=== PATIENT | female | born 1955 | race Caucasian/White ===

== ENCOUNTER 2022-05-09 13:30 | Outpatient (CLI) | payer MEDICARE, SELFPAY ==
--- NOTE | 2022-05-09 13:30 | CRLHL7_ITS ---
For Patients: As a result of the Century Cures Act, medical imaging exams and procedure reports are released immediately into your electronic medical record. You may view this report before your referring provider. If you have questions, please contact your health care provider. DXA BONE MINERAL DENSITY STUDY, 05/09/2022 Current height (in): 60.5. Weight (lb): 150. Menopause age: 54. Ethnicity: White. 1. Have you had a previous hip or vertebral fracture? No. 2. Have you had any fractures during your adult life which did not result from significant trauma (e.g., auto accident)? No. 3. Did either of your parents have a hip fracture? No. 4. Do you smoke? No. 5. Have you ever taken Glucocorticoids? No. 6. Do you have rheumatoid arthritis? No. 7. Do you have secondary osteoporosis? No. 8. Do you drink 3 or more alcoholic drinks per day? No. 9. Are you being treated for osteoporosis? No. 10. Have you ever taken any of the following medications: Actonel, Evista, Fosamax, Miacalcin, Reclast, Boniva, Forteo, HRT (i.e. estrogen/hormone therapy), Protelos, Prolia, Vitamin D, Calcium, other ??? please specify. ANSWER: Yes, vitamin D and calcium. 11. Do you have any of the following medical conditions: Anorexia or bulimia, asthma or emphysema, end stage renal disease, hyperparathyroidism, any seizure disorders, cancer, inflammatory bowel diseases, hysterectomy, other ??? please specify. ANSWER: No. 12. What was your maximum height (inches)? 62 13. Do you perform weight bearing exercise regularly? Yes. 14. Do you regularly consume dairy products? Yes. 15. Do you drink caffeinated beverages? Yes. If female: 16. At what age did your period start? 14. 17. Are you premenopausal? No. 18. How many full term pregnancies have you had? 2. 19. Have you ever missed your period for more than 6 months in a row (not including or menopause)? No. TECHNIQUE: Bone mineral density study was performed using the [employer]. FINDINGS: The results of the study expressed as bone mineral density (BMD) are as follows: Lumbar spine L2 to L3: BMD: 0.900 g/cm2. T-score: -1.4. Z-score: 0.4 Neck Left: BMD: 0.741 g/cm2. T-score: -1.0. Z-score: 0.6 Right: BMD: 0.779 g/cm2. T-score: -0.6. Z-score: 0.9 Total Left: BMD: 0.928 g/cm2. T-score: -0.1. Z-score: 1.1 Right: BMD: 0.935 g/cm2. T-score: -0.1. Z-score: 1.2 Radius Left 33%: BMD: 0.620 g/cm2. T-score: -1.2. Z-score: 0.5 IMPRESSION: Osteopenia. COMPARISON: Compared with scan of 06/28/2020, the bone mineral density has decreased by 4.1 percent at the spine, increased by 1.6 percent at the hip and increased by 0.5 percent at the left forearm. Compared with scan of 05/11/2018, the bone mineral density has decreased by 4.4 percent at the spine and decreased by 0.8 percent at the hip. FRAX 10-year Fracture Risk Major Osteoporotic Fracture: 8.0 percent Hip Fracture: 0.6 percent Reported Risk Factors: [place] () Neck BMD = 0.741, BMI = 28.8 Sondra Moe M.D. Diagnostic Radiologist [email or web address] DAVID/[email or web address] sheffield/Dictated by: Sondra Moe MD @ 05/10/2022 10:52:00 AM (Electronically Signed)
== END 2022-05-09 13:31 | disposition home or self-care (01) ==
LOC: RAD 16:03
PROVIDERS: PCP Family Medicine; Visit Provider Family Medicine
DX: M85.80 Other specified disorders of bone density and structure, unspecified site (principal); M85.89 Other specified disorders of bone density and structure, multiple sites
CPT/HCPCS: 77080

== ENCOUNTER 2022-06-03 10:01 | Outpatient (CLI) | payer MEDICARE, SELFPAY ==
--- NOTE | 2022-06-03 10:15 | CRLHL7_ITS ---
For Patients: As a result of the Century Cures Act, medical imaging exams and procedure reports are released immediately into your electronic medical record. You may view this report before your referring provider. If you have questions, please contact your health care provider. BILATERAL MAMMOGRAM WITH COMPUTER-AIDED DETECTION AND TOMOSYNTHESIS TECHNIQUE: CC and MLO views were obtained. These mammographic images have been obtained using full-field digital technique. These mammographic images were interpreted with the benefit of computer-aided detection. Breast Tomosynthesis was used in this interpretation. COMPARISON FILM: 05/31/21, 05/29/20, 05/21/19. FINDINGS: There are scattered areas of fibroglandular density IMPRESSION: There is no radiographic evidence for malignancy. ASSESSMENT: BI-RADS Category 1: Negative RECOMMENDATION: Routine screening mammogram in 1 year. A lay language report of this examination will be provided to the patient. Vick Burger M.D. Diagnostic/Musculoskeletal Radiologist [email or web address] OTONIEL/[email or web address] / be/Dictated by: Vick Burger MD @ 06/04/2022 8:46:00 AM (Electronically Signed)
== END 2022-06-03 10:02 | disposition home or self-care (01) ==
LOC: MAMMO 10:03
PROVIDERS: PCP Family Medicine; Visit Provider Obstetrics & Gynecology
DX: Z12.31 Encounter for screening mammogram for malignant neoplasm of breast (principal)
CPT/HCPCS: 77063; 77067

== ENCOUNTER 2022-10-23 06:16 | Day surgery (SDC) | payer MEDICARE, SELFPAY ==
[2022-10-23] VITALS (13 sets, daily range): BP systolic 101–129; BP diastolic 63–78; PULSE 64–69; RESP 14–18; TEMP 36.4–36.6; O2SAT 95–99
[2022-10-23] MEDS: BUPIVACAINE 0.5% 30 ML INJECTION (06:34)
[2022-10-23] MEDS: ETHYL CHLORIDE 1 APPLICATION 1 APPLIC TOPICAL (07:10)
--- NOTE | 2022-10-23 07:59 | PM.ORPRC ---
Procedure Note Date of procedure: 10/23/22 Procedure: PREOPERATIVE DIAGNOSIS: 1. Right index finger dorsal DIP joint mucous cyst with associated osteophyte POSTOPERATIVE DIAGNOSIS: 1. Right index finger dorsal DIP joint mucous cyst with associated osteophyte PROCEDURE: 1. Right index finger dorsal DIP joint mucous cyst open excision 2. Right index finger dorsal D IP joint osteophyte open excision SURGEON: Addy Lyons MD. FINANCIAL ECONOMIST: Sanjeev Johnson PA-C - Of note, an processing assistant was critical for this case to aid in patient positioning, tissue retraction, limb manipulation/positioning, and closure. ANESTHESIA: Local anesthetic (50:50 mixture of 1% lidocaine plain and 0.5% marcaine plain)-10 mL total digital block IMPLANTS: None TOURNIQUET: 15 minutes digital tourniquet for COMPLICATIONS: None evident INDICATIONS: The patient is a pleasant 67-year-old female who has experienced right index finger dorsal D IP joint mucous cyst development, osteophyte formation, and pain that has progressively gotten worse. Nonoperative management has been tried but unsuccessful. Given the failure of nonoperative management, and how this affects daily life, surgery was recommended. DESCRIPTION OF PROCEDURE: Following a thorough discussion of risks, benefits, and alternatives consent was obtained and the operative extremity was marked. The patient was brought to the operating room and placed supine on the operating table. No antibiotics were administered as this was planned to be a local case only. Proper time-out was performed identifying proper patient, site, and procedure. The operative extremity was prepped and draped in the appropriate sterile fashion using ChloraPrep. The limb was exsanguinated and the tourniquet inflated. A transverse incision was made overlying the dorsal aspect of the IP joint right index finger and T'd proximally along the radial mid axial line. Sharp incision through skin and blunt dissection through subcutaneous tissue loss to protect the extensor tendon. A window was created along the radial aspect of the extensor tendon with excision of this subcutaneous/fascial tissue. The mucous cyst was immediately encountered and the thick, viscous, gelatinous fluid was evacuated. The cyst itself was excised sharply with a 15 blade and sent for permanent pathology. We then turned our attention to osteophyte excision. A combination of rongeur, curette, and rasp allowed us to debulk the distal phalanx base dorsal osteophyte. This required us to go on both sides the extensor tendon. The tendon was protected throughout the case and confirmed to be intact at the end. Thorough irrigation normal saline was performed. The tourniquet was released, hemostasis achieved, and closure performed with 4-0 nylon in interrupted fashion. Soft dressings were applied, and the patient was awoken/transferred to the recovery room in stable condition. PLAN: 1. Encourage elevation of the operative extremity. 2. Range of motion of the operative extremity/digits as tolerated. 3. Ibuprofen, acetaminophen and/or Percocet as needed for pain. 4. Follow up with PA visit in 12-16 days for wound check and suture removal.
--- NOTE | 2022-10-23 08:15 | SUR.PREOP ---
SAME DAY SURGERY LOCAL INJECTION SITE VERIFICATION WAS PERFORMED BY SURGEON/PA AND PATIENT PRIOR TO LOCAL ANESTHETIC BEING INJECTED TO OPERATIVE SITE.right index finger Dr. Lyons
== END 2022-10-23 08:33 | disposition home or self-care (01) ==
PROVIDERS: PCP Family Medicine; Visit Provider Orthopaedic Surgery Sports Medicine
PROC: (CPT 26160; principal; 2022-10-23 07:30)
DX: M67.441 Ganglion, right hand (principal); M25.741 Osteophyte, right hand
CPT/HCPCS: 26160; 88304; J3490

== ENCOUNTER 2023-02-06 08:58 | Emergency (ER) | payer MEDICARE, SELFPAY ==
[2023-02-06] VITALS (12 sets, daily range): BP systolic 117–146; BP diastolic 67–78; PULSE 59–68; RESP 18; TEMP 36.9; O2SAT 96–100; BMI 26.2
--- NOTE | 2023-02-06 09:23 | ED.NURSE ---
started #20 jelco as a saline lock in the right AC and able to draw the labs from iv site. running a poc trop in ED with pending results.
--- NOTE | 2023-02-06 09:31 | ED_ITS ---
HPI - Chest Pain General Chief Complaint: Chest Pain Stated Complaint: heart issues Time Seen by Provider: 02/06/23 09:08 History of Present Illness HPI narrative: This 67-year-old female comes in reporting some chest discomfort that is rather persistent over the past week. She states that it is in the central part of her anterior chest overlying the sternum. She describes it as a pain or pressure. She does not report any nausea, vomiting, lightheadedness, shortness of breath, or diaphoresis. She has good exercise tolerance and regularly walks without any symptoms. She does not describe any injury event. She states that she has had extra stress over the past year because her son as a non-Hodgkin's lymphoma. He underwent a stem cell transplant 100 days ago and has been doing well. Related Data Home Medications Medication Instructions Recorded Confirmed ascorbic acid (vitamin C) 500 mg 500 mg PO DAILY 06/17/22 02/06/23 tablet aspirin 81 mg tablet,delayed 81 mg PO DAILY 06/17/22 02/06/23 release calcium carbonate 600 mg-vitamin 2 tab PO DAILY 06/17/22 02/06/23 D3 10 mcg (400 unit) tablet lisinopril 10 mg tablet 10 mg PO DAILY 06/17/22 02/06/23 multivitamin with iron (Daily 1 tab PO QDAY 06/17/22 02/06/23 Multiple Vitamins with Iron tablet) naproxen 250 mg tablet 220 mg PO BID 06/17/22 02/06/23 omega-3 acid ethyl esters 1 gram 1 cap PO QDAY 06/17/22 02/06/23 capsule simvastatin 5 mg tablet 5 mg PO .Bedtime 06/17/22 02/06/23 Allergies Allergy/AdvReac Type Severity Reaction Status Date / Time No Known Allergies Allergy Verified 11/14/22 10:22 Review of Systems Status of ROS Reports: 10 or more systems reviewed and unremarkable except as noted in History and below Narrative Constitutional: No fevers, no weight gain or loss. Eyes: No discharge. No vision changes. HENT: No congestion, no sore throat, no ear pain. Cardiovascular: No palpitations. Respiratory: No shortness of breath, no wheezes, no cough. Gastrointestinal: No abdominal pain, no vomiting, no diarrhea. Genitourinary: No dysuria, no hematuria. Musculoskeletal: Normal range of motion. Skin: No rashes, no pruritis. Neurological: No dizziness, weakness, sensory change, speech change. Endo/Heme/Allergies: No bruising or bleeding. No polydipsia. Pysch: no suicidality, no anxiety, no insomnia. All other systems reviewed and are negative. [facility] Medical History (Updated 02/06/23 @ 10:25 by Valentin Morrissey MD) Elevated cholesterol ?E78.00 - Pure hypercholesterolemia, unspecified (ICD-10) History of basal cell carcinoma (BCC) (2016) ?Z85.828 - Personal history of other malignant neoplasm of skin (ICD-10) History of benign breast biopsy (1991) ?Z98.890 - Other specified postprocedural states (ICD-10) History of complications due to general anesthesia (2006) ?Z91.89 - Other specified personal risk factors, not elsewhere classified (ICD-10) Neck problem ?R68.89 - Other general symptoms and signs (ICD-10) NSAID long-term use ?Z79.1 - MCC (current) use of non-steroidal anti-inflammatories (NSAID) (ICD-10) Surgical History (Updated 11/14/22 @ 11:07 by Sanjeev Johnson PA-C) H/O removal of cyst (10/23/22) ?Z98.890 - Other specified postprocedural states (ICD-10) History of section (1989) ?Z98.891 - History of uterine scar from previous surgery (ICD-10) History of colonoscopy (05/06/18) ?Z98.890 - Other specified postprocedural states (ICD-10) History of hysteroscopy (2005) ?Z98.890 - Other specified postprocedural states (ICD-10) History of laparoscopy (1987) ?Z98.890 - Other specified postprocedural states (ICD-10) History of Mohs micrographic surgery for skin cancer (2016) ?Z85.828 - Personal history of other malignant neoplasm of skin (ICD-10) ?Z98.890 - Other specified postprocedural states (ICD-10) History of oral surgery (2008) ?Z98.890 - Other specified postprocedural states (ICD-10) History of tubal ligation (1998) ?Z98.51 - Tubal ligation status (ICD-10) History of varicose vein ligation (2015) ?Z98.890 - Other specified postprocedural states (ICD-10) ?Z86.79 - Personal history of other diseases of the circulatory system (ICD- 10) Family History (Updated 09/06/22 @ 10:30 by Heidi English MD) Family/Other Breast cancer, Onset Age: 50 Maternal Grandmother Stroke Father Coronary artery disease, Onset Age: 60 Diabetes Mother Lupus erythematosus Paternal Grandfather Colon cancer, Onset Age: 90 Aunt Breast cancer, Onset Age: 50 Son Lymphoma Social History (Reviewed 11/07/22 @ 08:35 by Es Jordan ~ [facility], [facility]) Narrative: Exercises 5 to 6 times per week. 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 3-5 Smoking Status: Never smoker Second hand tobacco smoke exposure: No How often do you have a drink containing alcohol: 2-3 times a week How many standard drinks containing alcohol do you have on a typical day: 1 or 2 How often do you have six or more drinks on one occasion: Less than monthly AUDIT-C Alcohol total score: 4 Non-prescribed substance use: denies use service: No Exam Narrative Exam Narrative: Constitutional: Well-developed, well-nourished, no acute distress. HEENT: Normocephalic, atraumatic. Neck: Normal range of motion. Nontender. Supple. Heart: Regular. No murmurs. Normal rate. Intact distal pulses. Lungs: Clear to auscultation. No chest discomfort. No wheezes, rhonchi, or rales. Abdomen: Normal bowel sounds. Nontender. No rebound tenderness. Genitalia: Deferred. Back: No midline tenderness. Normal range of motion. Extremities: Normal range of motion. No injury. Skin: Intact. No rash. Warm. No erythema or pallor. Neurologic: No altered sensation. No weakness. Alert and oriented. Psychiatric: No suicidality. No anxiety or depression. No insomnia. Nursing notes and vitals signs are reviewed. Const Vital Signs, click to edit/add: Vital Signs - 24 hr 02/06/23 09:06 02/06/23 09:12 02/06/23 09:13 Temperature 98.4 F Pulse Rate 67 67 Pulse Rate [Left Pulse Oximeter] 64 Respiratory Rate 18 Blood Pressure 129/75 Blood Pressure [Left Upper Arm] 146/75 H Pulse Oximetry 100 99 99 Oxygen Delivery Method Room Air 02/06/23 09:15 02/06/23 09:30 02/06/23 09:32 Temperature Pulse Rate 68 63 63 Pulse Rate [Left Pulse Oximeter] Respiratory Rate Blood Pressure 126/78 Blood Pressure [Left Upper Arm] Pulse Oximetry 99 97 98 Oxygen Delivery Method 02/06/23 09:45 02/06/23 10:00 02/06/23 10:01 Temperature Pulse Rate 62 60 63 Pulse Rate [Left Pulse Oximeter] Respiratory Rate Blood Pressure 124/75 Blood Pressure [Left Upper Arm] Pulse Oximetry 96 97 98 Oxygen Delivery Method 02/06/23 10:15 Temperature Pulse Rate 59 L Pulse Rate [Left Pulse Oximeter] Respiratory Rate Blood Pressure Blood Pressure [Left Upper Arm] Pulse Oximetry 97 Oxygen Delivery Method Course Vital Signs Vital signs: Initial Vital Signs Temperature 98.4 F 02/06/23 09:06 Temperature Source Temporal Artery Scan 02/06/23 09:06 Pulse Rate 64 02/06/23 09:06 Pulse Rhythm Regular 02/06/23 09:06 Pulse Strength 3+ Normal 02/06/23 09:06 Respiratory Rate 18 02/06/23 09:06 Blood Pressure 146/75 H 02/06/23 09:06 Blood Pressure Mean 98 02/06/23 09:06 Blood Pressure Position Sitting 02/06/23 09:06 Pulse Oximetry 100 02/06/23 09:06 Oxygen Delivery Method Room Air 02/06/23 09:06 Vital Signs Temperature 98.4 F 02/06/23 09:06 Pulse Rate 64 02/06/23 09:06 Respiratory Rate 18 02/06/23 09:06 Blood Pressure 146/75 H 02/06/23 09:06 Pulse Oximetry 100 02/06/23 09:06 Oxygen Delivery Method Room Air 02/06/23 09:06 Temperature 98.4 F 02/06/23 09:06 Pulse Rate 59 L 02/06/23 10:15 Respiratory Rate 18 02/06/23 09:06 Blood Pressure 124/75 02/06/23 10:01 Pulse Oximetry 97 02/06/23 10:15 Oxygen Delivery Method Room Air 02/06/23 09:06 MDM - Chest Pain MDM Narrative Medical decision making narrative: This patient comes in with some mild chest discomfort that she describes as a pain or pressure that is been rather constant over the past week. She does not have any other associated symptoms. She does not have any major cardiac risk factors and has good exercise tolerance. EKG and labs returned with reassuring findings here. Her symptoms are not likely emanating from her heart or lungs or other vital organs. More likely this is chest wall pain. I did describe further studies that can be considered such as a stress test. At the time of discharge the patient appears safe for outpatient management. The treatment plan is reviewed along with written and verbal return precautions. Reasons to return and the importance of close followup were also reviewed. Lab Data Labs: Lab Results 02/06/23 02/06/23 Range/Units 09:15 09:31 WBC 5.82 (4.50-11.00) K/uL RBC 4.38 (4.00-5.20) m/uL Hgb 13.1 (12.0-16.0) gm/dL Hct 40.5 (33.0-51.0) % MCV 93 (80-100) fL MCH 30 (26-34) pg MCHC 32 (32-36) gm/dL RDW Coeff of Pearl 13.2 (11.5-15.5) % Plt Count 245 (140-440) K/uL Neut % (Auto) 59.1 (42.0-72.0) % Lymph % (Auto) 30.2 (20-44) % Rogers % (Auto) 7.4 (0.0-11.0) % Eos % (Auto) 2.4 (0.0-7.0) % Baso % (Auto) 0.7 (0.0-3.0) % Neut # (Auto) 3.44 (1.7-7.0) K/uL Lymph # (Auto) 1.76 (0.90-2.90) K/uL Rogers # (Auto) 0.40 (0.00-0.90) K/UL Eos # (Auto) 0.14 (0.00-0.50) K/uL Baso # (Auto) 0.04 (0.00-0.30) K/uL Sodium 137 (135-149) mmol/L Potassium 4.0 (3.6-5.1) mmol/L Chloride 106 (96-114) mmol/L Carbon Dioxide 26 (20-32) mmol/L BUN 17 (7-30) mg/dL Creatinine 0.8 (0.5-1.5) mg/dL Estimated Creat Clear 43.77 Estimated GFR 81 ml/min Glucose 131 H (60-115) mg/dL Calcium 9.4 (8.4-10.6) mg/dL POC Troponin I 0.00 L (0.01-0.04) ng/ml ECG Data Attestation: I personally reviewed and interpreted this ECG as follows: Interpretation: Normal sinus rhythm. Rate is 68 beats per minute. There are no ST or T-wave abnormalities. Discharge Plan Discharge Clinical Impression: Atypical chest pain Patient Disposition: Home, Self-Care Condition: Stable Additional Instructions: Continue current plans. Activity as tolerated. Follow up with MD or return if symptoms are worsening. Prescriptions: No Action calcium carbonate-vitamin D3 600 mg-10 mcg (400 unit) tablet 2 tab PO DAILY ascorbic acid (vitamin C) 500 mg tablet 500 mg PO DAILY aspirin 81 mg tablet,delayed release (DR/EC) 81 mg PO DAILY naproxen 250 mg tablet 220 mg PO BID omega-3 acid ethyl esters 1 gram capsule 1 cap PO QDAY multivitamin with iron [Daily Multiple Vitamins/Iron] Tablet 1 tab PO QDAY lisinopril 10 mg tablet 10 mg PO DAILY simvastatin 5 mg tablet 5 mg PO .Bedtime Follow Up/Referrals: Heidi English MD [Primary Care Provider] - Stand Alone Forms: [employer] Info Instructions
[2023-02-06 09:42] LABS: Basophils Absolute Auto 0.04 K/uL (0.00-0.30); Basophils Percent Auto 0.7 % (0.0-3.0); Eosinophils Absolute Auto 0.14 K/uL (0.00-0.50); Eosinophils Percent Auto 2.4 % (0.0-7.0); Hematocrit 40.5 % (33.0-51.0); Hemoglobin* 13.1 gm/dL (12.0-16.0); Immature Granulocytes Abs Auto 0.01 K/uL (0.00-0.30); Immature Granulocytes Pct Auto 0.2 %; Lymphocytes Absolute Auto 1.76 K/uL (0.90-2.90); Lymphocytes Percent Auto 30.2 % (20-44); Mean Corpuscular HGB Conc 32 gm/dL (32-36); Mean Corpuscular Hemoglobin 30 pg (26-34); Mean Corpuscular Volume 93 fL (80-100); Monocytes Percent Auto 7.4 % (0.0-11.0); Neutrophils Absolute Auto 3.44 K/uL (1.7-7.0); Neutrophils Percent Auto 59.1 % (42.0-72.0); Platelet Count* 245 K/uL (140-440); RDW Coefficient of Variation % 13.2 % (11.5-15.5); Red Blood Count 4.38 m/uL (4.00-5.20); White Blood Count* 5.82 K/uL (4.50-11.00)
[2023-02-06 09:44] LABS: Slide Review Reflex No
[2023-02-06 09:58] LABS: Chloride* 106 mmol/L (96-114); Sodium* 137 mmol/L (135-149)
[2023-02-06 10:01] LABS: Blood Urea Nitrogen* 17 mg/dL (7-30); Carbon Dioxide* 26 mmol/L (20-32); Creatinine* 0.8 mg/dL (0.5-1.5); Est. Creatinine Clearance* 43.77; Estimated Glomerular Filt Rate 81 ml/min; Glucose* 131 mg/dL (60-115)
[2023-02-06 10:02] LABS: Calcium* 9.4 mg/dL (8.4-10.6)
== END 2023-02-06 10:33 | disposition home or self-care (01) ==
PROVIDERS: Emergency Provider Emergency Medicine Emergency Medical Services; PCP Family Medicine
DX: R07.89 Other chest pain (principal)
CPT/HCPCS: 36415; 80048; 84484; 85025; 93005; 99284

== ENCOUNTER 2023-02-14 10:36 | Outpatient (CLI) | payer MEDICARE, SELFPAY | END 2023-02-14 10:37 | disposition home or self-care (01) | LOC: NFLDREF 10:37 | PROVIDERS: PCP Family Medicine; Visit Provider Family Medicine | DX: E78.5 Hyperlipidemia, unspecified (principal); I10 Essential (primary) hypertension | CPT/HCPCS: 80061 ==

== ENCOUNTER 2023-03-04 14:35 | Outpatient (CLI) | payer MEDICARE, SELFPAY ==
[2023-03-04 15:30] VITALS: BP 143/90; PULSE 79
--- NOTE | 2023-03-04 17:06 | W.PM.STED ---
Stress Test Note Date Date of test: 03/04/23 Providers Primary care provider: Heidi English Stress test physician: Jesus Manuel Reza Stress Test Note Stress test ordered: Stress Echo Indication for test: Atypical chest Results discussion: Patient is a very nice 67-year-old female presents the above test after discussion the risks benefits and side effects he would like to proceed pretest EKG shows normal sinus rhythm with ventricular rate of 66 and a blood pressure 128 on 84, no acute ST wave changes are noted following standard Papa protocol patient is exercised for a total time course of 7 minutes 17 seconds achieved a metabolic: 8.7 Mets, test is terminated because of fulfillment of protocol, she had no chest pain shortness of breath or any other subjective complaints. Review of the tracing post did not show any significant dysrhythmias, there is no ST wave changes suggestive of ischemia, Impression: Negative electrographic portion of stress echo Follow up suggested: Await echo images these will be read by Cardiology, clinical correlation with these will be needed, patient left this testing facility in good condition back to baseline.
== END 2023-03-04 14:36 | disposition home or self-care (01) ==
PROVIDERS: PCP Family Medicine; Visit Provider Family Medicine
DX: R07.89 Other chest pain (principal)
CPT/HCPCS: 93016; 93325; 93351

== ENCOUNTER 2023-06-12 12:43 | Outpatient (CLI) | payer MEDICARE, SELFPAY ==
--- NOTE | 2023-06-12 13:00 | CRLHL7_ITS ---
For Patients: As a result of the Century Cures Act, medical imaging exams and procedure reports are released immediately into your electronic medical record. You may view this report before your referring provider. If you have questions, please contact your health care provider. BILATERAL SCREENING MAMMOGRAM WITH COMPUTER-AIDED DETECTION AND TOMOSYNTHESIS TECHNIQUE: CC and MLO views were obtained. These mammographic images have been obtained using full-field digital technique. These mammographic images were interpreted with the benefit of computer-aided detection. Breast Tomosynthesis was used in this interpretation. COMPARISON FILM: 06/03/22, 05/31/21, 05/29/20. FINDINGS: There are scattered areas of fibroglandular density IMPRESSION: There is no radiographic evidence for malignancy. ASSESSMENT: BI-RADS Category 1: Negative RECOMMENDATION: Routine screening mammogram in 1 year. A lay language report of this examination will be provided to the patient. Doug Pryor M.D. Diagnostic Radiologist [email or web address] HILDA/Dictated by: Doug Pryor MD @ 06/13/2023 8:40:00 AM (Electronically Signed)
== END 2023-06-12 12:44 | disposition home or self-care (01) ==
LOC: MAMMO 12:44
PROVIDERS: PCP Family Medicine; Visit Provider Family Medicine
DX: Z12.31 Encounter for screening mammogram for malignant neoplasm of breast (principal)
CPT/HCPCS: 77063; 77067

== ENCOUNTER 2023-06-23 07:45 | Outpatient (CLI) | payer MEDICARE, SELFPAY | END 2023-06-23 07:46 | disposition home or self-care (01) | LOC: NFLDREF 10:33 | PROVIDERS: PCP Family Medicine; Referring Provider Family Medicine; Visit Provider Family Medicine | DX: Z00.00 Encounter for general adult medical examination without abnormal findings (principal); E78.5 Hyperlipidemia, unspecified; I10 Essential (primary) hypertension; Z11.59 Encounter for screening for other viral diseases; M85.80 Other specified disorders of bone density and structure, unspecified site | CPT/HCPCS: 80053; 80061; 82306; 86803; 87522 ==

== ENCOUNTER 2023-12-26 07:20 | Outpatient (CLI) | payer MEDICARE, SELFPAY ==
--- OUTSIDE RECORDS SUMMARY | 2023-12-26 12:15 | XMS_ITS | Clinical Summary ---
Author Name Unknown Organization [employer] [facility] Address [place], [place] [address] Care Team Providers Care Assistant Dean Name Role Phone Heidi English MD Primary Care Provider + Allergies No known active allergies Medications Medication Sig Dispensed Refills Start Date End Date Status simvastatin (ZOCOR) 5 mg tablet Take 5 mg by mouth once daily. 0 04/10/2018 Active naproxen sodium 220 mg cap Take 220 mg by mouth 2 times daily. 0 05/06/2018 Active aspirin (ECOTRIN) 81 mg enteric coated tablet Take 1 tablet by mouth once daily with a meal. 0 05/06/2018 Active multivitamin capsule Take 1 capsule by mouth once daily. 0 05/06/2018 Active Fish Oil-DHA-EPA 1,200-144-216 mg cap Take 1 capsule by mouth once daily. 0 05/06/2018 Active ascorbic acid SR (VITAMIN C) 500 mg capsule Take 1 capsule by mouth once daily. 0 05/06/2018 Active melatonin 3 mg tablet Take 1 tablet by mouth at bedtime. 0 05/06/2018 Active Immunizations Name Administration Dates Next Due Tdap 04/08/2018 Social History Tobacco Use Types Packs/Day Years Used Date Smoking Tobacco: Never Smokeless Tobacco: Never Tobacco Cessation:Counseling Given: Yes Alcohol Use Standard Drinks/Week Comments Yes 0 (1 standard drink = 0.6 oz pur e alcohol) occas Sex and Gender Information Value Date Recorded Sex Assigned at Not on file Gender Identity Not on file Sexual Orientation Not on file Obstetrics History Last Filed Vital Signs Vital Sign Reading Time Taken Comments Blood Pressure 148/81 06/30/2019 1:26 PM CDT Pulse 68 06/30/2019 1:26 PM CDT Temperature 36.7 ??C (98.1 ??F) 06/30/2019 1:26 PM CD T Respiratory Rate - - Oxygen Saturation 100% 06/30/2019 1:26 PM CDT Inhaled Oxygen Concentration - - Weight 66.8 kg (147 lb 3.2 oz) 06/30/2019 1:26 P M CDT Height - - Body Mass Index - - Plan of Treatment Health Maintenance Due Date Last Done Comments COVID-19 vaccine series (#1) 02/03/1956 Depression screening for age 12+ 1968 BMI (ht and wt on same day) for age 18+ 1974 Hepatitis C screening for age 18-79 1974 Lipids for age 45-75 2001 Mammogram for age 45-75 2001 Zoster (shingles) series for age 50+ (1 of 2) 2006 DEXA/DXA scan for age 65+ 2021 Pneumococcal series for age 65+ (1 of 1 - PCV) 2021 Influenza for age 65+ 07/11/2023 Tetanus booster 04/08/2028 04/08/2018 Colonoscopy through age 75 05/06/2028 05/06/2018, Tdap Completed 04/08/2018 Care Teams Assistant Dean Relationship Specialty Start Date End Date Heidi English MD [address] [place] [address] PCP - General Family Practice 05/06/18
== END 2023-12-26 07:21 | disposition home or self-care (01) ==
LOC: NFLDREF 12:13
PROVIDERS: PCP Family Medicine; Referring Provider Family Medicine; Visit Provider Family Medicine
DX: M19.90 Unspecified osteoarthritis, unspecified site (principal); Z79.1 Long term (current) use of non-steroidal anti-inflammatories (NSAID); Z79.899 Other long term (current) drug therapy
CPT/HCPCS: 80053

== ENCOUNTER 2024-01-08 08:05 | Outpatient (CLI) | payer MEDICARE, SELFPAY | END 2024-01-08 08:06 | disposition home or self-care (01) | LOC: NFLDREF 01-23 09:43 | PROVIDERS: PCP Family Medicine; Referring Provider Family Medicine; Visit Provider Family Medicine | DX: E78.5 Hyperlipidemia, unspecified (principal) | CPT/HCPCS: 80061 ==

== ENCOUNTER 2024-06-23 07:26 | Outpatient (CLI) | payer MEDICARE, SELFPAY ==
--- OUTSIDE RECORDS SUMMARY | 2024-06-23 07:29 | XMS_ITS | Clinical Summary ---
Author Organization [facility] Address [place], [place] [address] Care Team Providers Care Architecture Analyst Name Role Phone Heidi English MD Primary Care Provider + Allergies No known active allergies Medications Medication Sig Dispensed Refills Start Date End Date Status simvastatin (ZOCOR) 5 mg tablet Take 5 mg by mouth once daily. 04/10/2018 Active naproxen sodium 220 mg cap [...] Health Maintenance Due Date Last Done Comments Depression screening for age 12+ 1968 BMI (ht and wt on same day) for age 18+ 1974 Hepatitis C screening for age 18-79 1974 Lipids for age 45-75 2001 Mammogram for age 45-75 2001 Zoster (shingles) series for age 50+ (1 of 2) 2006 DEXA/DXA scan for age 65+ 2021 Pneumococcal series for age 65+ (1 of 1 - PCV) 2021 COVID-19 vaccine series ( - 2022-24 season) 2023 Influenza for age 65+ 07/11/2024 Tetanus booster 04/08/2028 04/08/2018 Colonoscopy through age 75 05/06/2028 05/06/2018, Tdap Completed 04/08/2018 Procedures Procedure Name Priority Date/Time Associated Diagnosis Comments COLONOSCOPY 05/06/2018 8:16 AM CDT from Last 3 Months or Most Recently Relevant to Health Maintenance Results * COLONOSCOPY (05/06/2018 8:16 AM CDT) 05/06/2018 8:16 AM CDT Narrative Transcriptions Parish Blanco MD - 05/06/2018 9:08 AM CDT Patient Name: Bushra Olivier Procedure Date: 05/06/2018 Gender: Female Date of : 1955 Admit Type: Outpatient Procedure: Colonoscopy Proceduralist: Parish Blanco MD , Carina Nj (Nurse) Indications/Pre-Op Diagnosis: Screening for colorectal malignant neoplasm, Last colonoscopy: April 2008 Medications: Fentanyl 100 micrograms IV, Midazolam 2 mgIV, The level of sedation administered wasmoderate Procedure Description: The patient had risks, benefits and alternatives explained to andgave informed consent. The patient had a stable cardiopulmonary status and judged an adequate candidate for conscious sedation. The colonoscope was passed through the anus and advanced to thececum, identified by appendiceal orifice and ileocecal valve. Thecolonoscopy was performed without difficulty. The patient tolerated the procedure well. The quality of the bowel preparation was good. The ileocecal valve, appendiceal orifice, and rectum were photographed. Complications: No immediate complications. Estimated Blood Loss & Specimen: Estimated blood loss: none. Specimen collected - None Findings: The perianal and digital rectal examinations were normal. The entire examined colon appeared normal on direct and retroflexion views. Impressions/Post-Op Diagnosis: - The entire examined colon is normal on direct and retroflexionviews. - No specimens collected. Recommendation: - Patient has a contact number available for emergencies. The signsand symptoms of potential delayed complications were discussed with the patient. Return to normal activities tomorrow. Written discharge instructions were provided to the patient. - Resume previous diet. - Continue present medications. - Repeat colonoscopy in 10 years for screening purposes. Moderate Sedation: Moderate (conscious) sedation was administered by the endoscopy nurse and supervised by the endoscopist. The following parameters were monitored: oxygen saturation, heart rate, respiratory rate, blood pressure, adequacy of pulmonary ventilation and reponse to care. [facility] flowsheets and nursing notes for moderate sedation details. Total physician intraservice time was 19 minutes. Parish Blanco MD 05/06/2018 9:08:05 AM This report has been signed electronically. Note Initiated On: 05/06/2018 8:16 AM Procedure Code(s): --- Professional --- 71887, Colonoscopy, flexible; diagnostic, including collection of specimen(s) bybrushing or washing, when performed (separateprocedure) Diagnosis Code(s): --- Professional --- Z12.11, Encounter for screening formalignant neoplasm of colon CPT copyright 2017 [employer]. All rights reserved. The codes documented in this report are preliminary and upon patient experience coordinator reviewmay be revised to meet current compliance requirements. Scope In: 8:46:28 AM Scope Withdrawal Time 0 hours 10 minutes 33 seconds Scope Out: 9:03:34 AM Parish Blanco MD PROCEDURE ORD from Last 3 Months or Most Recently Relevant to Health Maintenance Care Teams Architecture Analyst Relationship Specialty Start Date End Date Heidi English MD [address] [place] [address] PCP - General Family Practice 05/06/18
--- NOTE | 2024-06-23 07:45 | CRLHL7_ITS ---
For Patients: As a result of the Cures Act, medical imaging exams and procedure reports are released immediately into your electronic medical record. You may view this report before your referring provider. If you have questions, please contact your health care provider. BILATERAL SCREENING MAMMOGRAM WITH COMPUTER-AIDED DETECTION AND TOMOSYNTHESIS TECHNIQUE: CC and MLO views were obtained. These mammographic images have been obtained using full-field digital technique. These mammographic images were interpreted with the benefit of computer-aided detection. Breast Tomosynthesis was used in this interpretation. COMPARISON FILM: 06/12/23, 06/03/22, 05/31/21. FINDINGS: There are scattered areas of fibroglandular density IMPRESSION: There is no radiographic evidence for malignancy. ASSESSMENT: BI-RADS Category 1: Negative RECOMMENDATION: Routine screening mammogram in 1 year. A lay language report of this examination will be provided to the patient. Doug Pryor M.D. Diagnostic Radiologist [email or web address] ANA [email or web address] Transcribed: 6:01 p.sara sheffield/Dictated by: Doug Pryor MD @ 06/24/2024 10:05:00 AM (Electronically Signed)
== END 2024-06-23 07:27 | disposition home or self-care (01) ==
LOC: MAMMO 07:27
PROVIDERS: PCP Family Medicine; Visit Provider Family Medicine
DX: Z12.31 Encounter for screening mammogram for malignant neoplasm of breast (principal)
CPT/HCPCS: 77063; 77067

== ENCOUNTER 2024-06-25 07:30 | Outpatient (CLI) | payer MEDICARE, SELFPAY ==
--- OUTSIDE RECORDS SUMMARY | 2024-06-25 13:06 | XMS_ITS | Clinical Summary ---
Author Organization [facility] Address [place], [place] [address] Care Team Providers Care Janitor Custodian Name Role Phone Heidi English MD Primary [...] reponse to care. [facility] and nursing notes for moderate sedation details. Total physician intraservice time was 19 minutes. Parish Blanco MD 05/06/2018 9:08:05 AM This report has been signed electronically. Note Initiated On: 05/06/2018 8:16 AM Procedure Code(s): --- Professional --- 18776, Colonoscopy, flexible; diagnostic, including collection of specimen(s) bybrushing or washing, when performed (separateprocedure) Diagnosis Code(s): --- Professional --- Z12.11, Encounter for screening formalignant neoplasm of colon CPT copyright 2017 [employer]. All rights reserved. The codes documented in this report are preliminary and upon installment loan collector reviewmay be revised to meet current compliance requirements. Scope In: 8:46:28 AM Scope Withdrawal Time 0 hours 10 minutes 33 seconds Scope Out: 9:03:34 AM Parish Blanco MD PROCEDURE ORD from Last 3 Months or Most Recently Relevant to Health Maintenance Care Teams Janitor Custodian Relationship Specialty Start Date End Date Heidi English MD [address] [place] [address] PCP - General Family Practice 05/06/18
== END 2024-06-25 07:31 | disposition home or self-care (01) ==
LOC: NFLDREF 13:04
PROVIDERS: PCP Family Medicine; Referring Provider Family Medicine; Visit Provider Family Medicine
DX: E78.5 Hyperlipidemia, unspecified (principal); I10 Essential (primary) hypertension; M85.80 Other specified disorders of bone density and structure, unspecified site; Z79.1 Long term (current) use of non-steroidal anti-inflammatories (NSAID)
CPT/HCPCS: 80053; 80061; 82306

== ENCOUNTER 2024-07-15 13:10 | Outpatient (CLI) | payer MEDICARE, SELFPAY ==
--- OUTSIDE RECORDS SUMMARY | 2024-07-15 13:11 | XMS_ITS | Clinical Summary ---
Author Organization [facility] Address [place], [place] [address] Care Team Providers Care Plasterer Rough Name Role Phone Heidi English MD Primary [...] 1 - PCV) 2021 COVID-19 vaccine series (1 - 2022-24 season) 2024 Influenza for age 65+ 07/11/2024 Tetanus booster [...] reponse to care. [facility] and nursing notes for moderate sedation details. Total physician intraservice time was 19 minutes. Parish Blanco MD 05/06/2018 9:08:05 AM This report has been signed electronically. Note Initiated On: 05/06/2018 8:16 AM Procedure Code(s): --- Professional --- 16067, Colonoscopy, flexible; diagnostic, including collection of specimen(s) bybrushing or washing, when performed (separateprocedure) Diagnosis Code(s): --- Professional --- Z12.11, Encounter for screening formalignant neoplasm of colon CPT copyright 2017 [employer]. All rights reserved. The codes documented in this report are preliminary and upon waxed bag machine operator reviewmay be revised to meet current compliance requirements. Scope In: 8:46:28 AM Scope Withdrawal Time 0 hours 10 minutes 33 seconds Scope Out: 9:03:34 AM Parish Blanco MD PROCEDURE ORD from Last 3 Months or Most Recently Relevant to Health Maintenance Care Teams Plasterer Rough Relationship Specialty Start Date End Date Heidi English MD [address] [place] [address] PCP - General Family Practice 05/06/18
--- NOTE | 2024-07-15 13:30 | CRLHL7_ITS ---
For Patients: As a result of the Century Cures Act, medical imaging exams and procedure reports are released immediately into your electronic medical record. You may view this report before your referring provider. If you have questions, please contact your health care provider. DXA BONE MINERAL DENSITY STUDY Current height (in): 60.5. Weight (lb): 146.0. Menopause age: 54. Ethnicity: White. Reason for exam: Osteopenia. 1. Have you had a previous hip or vertebral fracture? No. 2. Have you had any fractures during your adult life which did not result from significant trauma (e.g., auto accident)? No. 3. Did either of your parents have a hip fracture? No. 4. Do you smoke? No. 5. Have you ever taken Glucocorticoids? No. 6. Do you have rheumatoid arthritis? No. 7. Do you have secondary osteoporosis? No. 8. Do you drink 3 or more alcoholic drinks per day? No. 9. Are you being treated for osteoporosis? No. 10. Have you ever taken any of the following medications: Actonel, Evista, Fosamax, Miacalcin, Reclast, Boniva, Forteo, HRT (i.e. estrogen/hormone therapy), Protelos, Prolia, Vitamin D, Calcium, other ??? please specify. ANSWER: Yes, calcium, vitamin D. 11. Do you have any of the following medical conditions: Anorexia or bulimia, asthma or emphysema, end stage renal disease, hyperparathyroidism, any seizure disorders, cancer, inflammatory bowel diseases, hysterectomy, other ??? please specify. ANSWER: Yes, osteoarthritis. 12. What was your maximum height (inches)? 62. 13. Do you perform weight bearing exercise regularly? Yes. 14. Do you regularly consume dairy products? Yes. 15. Do you drink caffeinated beverages? Yes. 16. At what age did your period start? 14. 17. Are you premenopausal? No. 18. How many full-term pregnancies have you had? 2. 19. Have you ever missed your period for more than 6 months in a row (not including or menopause)? No. TECHNIQUE: Bone mineral density study was performed using the [employer]. FINDINGS: The results of the study expressed as bone mineral density (BMD) are as follows: Lumbar spine L2 to L3: BMD: 0.933 g/cm2. T-score: -1.1. Z-score: 0.9 Neck Left: BMD: 0.699 g/cm2. T-score: -1.4. Z-score: 0.3 Right: BMD: 0.689 g/cm2. T-score: -1.4. Z-score: 0.2 Total Left: BMD: 0.917 g/cm2. T-score: -0.2. Z-score: 1.2 Right: BMD: 0.896 g/cm2. T-score: -0.4. Z-score: 1.0 Radius Left 33%: BMD: 0.593 g/cm2. T-score: -1.7. Z-score: 0.2 IMPRESSION: Osteopenia. *Comparison exams done prior to 04/2020 were performed on different unit, [place]. COMPARISON: Compared with scan of 05/09/2022, the bone mineral density has increased by 3.7 percent at the spine and decreased by 2.6 percent at the hip. FRAX 10-year Fracture Risk Major Osteoporotic Fracture: 9.3 percent Hip Fracture: 1.1 percent Reported Risk Factors: [place] () Neck BMD = 0.689, BMI = 28.0 Doug Pryor M.D. Diagnostic Radiologist [email or web address] Transcribed: 9:36 am DW/Dictated by: Doug Pryor MD @ 07/16/2024 9:02:00 AM (Electronically Signed)
== END 2024-07-15 13:11 | disposition home or self-care (01) ==
LOC: RAD 13:10
PROVIDERS: PCP Family Medicine; Visit Provider Family Medicine
DX: M85.89 Other specified disorders of bone density and structure, multiple sites (principal)
CPT/HCPCS: 77080

== ENCOUNTER 2024-12-28 07:26 | Outpatient (CLI) | payer MEDICARE, SELFPAY | END 2024-12-28 07:27 | disposition home or self-care (01) | LOC: NFLDREF 01-01 01:42 | PROVIDERS: PCP Family Medicine; Referring Provider Family Medicine; Visit Provider Family Medicine | DX: M15.0 Primary generalized (osteo)arthritis (principal); Z79.1 Long term (current) use of non-steroidal anti-inflammatories (NSAID) | CPT/HCPCS: 80053 ==

== ENCOUNTER 2025-06-24 12:56 | Outpatient (CLI) | payer MEDICARE, SELFPAY ==
--- NOTE | 2025-06-24 13:20 | CRLHL7_ITS ---
For Patients: As a result of the Century Cures Act, medical imaging exams and procedure reports are released immediately into your electronic medical record. You may view this report before your referring provider. If you have questions, please contact your health care provider. INDICATION: BILATERAL SCREENING MAMMOGRAM, ASYMPTOMATIC 69 Y/O FEMALE COMPARISON: 06/23/2024, 06/12/2023, 06/03/2022 TECHNIQUE: Digital mammogram in CC and MLO projections including computer-aided detection (CAD) and tomosynthesis. BREAST COMPOSITION: There are scattered areas of fibroglandular density. FINDINGS: No suspicious findings. ASSESSMENT: BI-RADS 1 Negative RECOMMENDATION: Annual screening mammogram. A lay language report of this examination will be provided to the patient. Dictated by: Susana Norris MD @ 06/27/2025 07:27:58 (Electronically Signed)
== END 2025-06-24 12:57 | disposition home or self-care (01) ==
LOC: MAMMO 12:56
PROVIDERS: PCP Family Medicine; Visit Provider Family Medicine
DX: Z12.31 Encounter for screening mammogram for malignant neoplasm of breast (principal)
CPT/HCPCS: 77063; 77067

== ENCOUNTER 2025-06-29 07:25 | Outpatient (CLI) | payer MEDICARE, SELFPAY | END 2025-06-29 07:26 | disposition home or self-care (01) | LOC: NFLDREF 07-04 14:18 | PROVIDERS: PCP Family Medicine; Referring Provider Family Medicine; Visit Provider Family Medicine | DX: I10 Essential (primary) hypertension (principal); E78.5 Hyperlipidemia, unspecified; R73.9 Hyperglycemia, unspecified; M81.0 Age-related osteoporosis without current pathological fracture; Z79.1 Long term (current) use of non-steroidal anti-inflammatories (NSAID) | CPT/HCPCS: 80053; 80061; 82306 ==